=== PATIENT | male | born 1970 | race Native Hawaiian/Other Pacific Islander ===

== ENCOUNTER 2020-10-05 15:32 | Outpatient (CLI) | payer OTHER ==
[2020-10-17 08:57] LABS: POTASSIUM 3.9 mmol/L (3.6-5.2)
[2020-10-17 09:00] LABS: PLATELET COUNT 195 K/uL (142-355)
== END 2020-10-05 18:00 | disposition home or self-care (01) ==
LOC: LAB 15:32
PROVIDERS: ATTEND Internal Medicine Endocrinology, Diabetes & Metabolism
DX: I10 Essential (primary) hypertension (principal); E03.9 Hypothyroidism, unspecified; E66.9 Obesity, unspecified; Z79.899 Other long term (current) drug therapy
CPT/HCPCS: 80053; 80061; 82043; 82306; 82550; 82607; 83036; 84155; 85027

== ENCOUNTER 2021-05-16 09:33 | Outpatient (CLI) | payer BC | END 2021-05-16 19:03 | disposition home or self-care (01) | LOC: CT 09:33 → US 09:33 | PROVIDERS: ATTEND Internal Medicine | DX: M79.662 Pain in left lower leg (principal); R60.0 Localized edema; I82.4Z2 Acute embolism and thrombosis of unspecified deep veins of left distal lower extremity; R06.02 Shortness of breath | CPT/HCPCS: Q9963 ==

== ENCOUNTER 2022-11-07 09:35 | Emergency (ER) | payer BC ==
[~2022-11-07] VITALS: Ht 175.3 cm; Wt 88.5 kg
[2022-11-07 09:38] VITALS: TEMP 98.1
[2022-11-07 10:11] LABS: PLATELET COUNT 184 K/uL (142-355)
[2022-11-07 10:18] LABS: POTASSIUM 4.4 mmol/L (3.6-5.2)
[2022-11-07 12:00] VITALS: BP 128/84
== END 2022-11-07 12:15 | disposition home or self-care (01) ==
LOC: ED 09:35
PROVIDERS: Family Medicine
DX: K52.9 Noninfective gastroenteritis and colitis, unspecified (principal); R19.7 Diarrhea, unspecified
CPT/HCPCS: 36415; 80053; 81002; 82150; 83605; 83690; 85027; 86140; 96360; 99284